=== PATIENT | female | born 1945 | race Caucasian/White ===

== ENCOUNTER 2017-11-13 18:26 | Emergency (ER) | payer MEDICARE, BC ==
--- NOTE | 2017-11-13 19:08 | EDM.PDOC ---
ED HPI GENERAL MEDICAL PROBLEM - General Chief Complaint: General Stated Complaint: confusion, delerium, hallucinations Time Seen by Provider: 11/13/17 18:30 Source of Information: Reports: Family, Other (care center staff) History Limitations: Reports: Altered Mental Status, Combative/Threatening - History of Present Illness INITIAL COMMENTS - FREE TEXT/NARRATIVE: Pt is a 72 year old female who is resident of [facility]. Apparently patient has been having behavior issues going on for the past 1 wk now. Pt is evaluated today, as patient has not slept since 3 am today and has been constantly wandering around in the room. She does try to take of her clothes. She has been having delusional taught of her being . Also she gets extremely confused. Not able to recognize her family members. She has been hearing voices. Also according to daughter who have been with hear today , patient has been hitting and also tried to bite her. She has been eating cheese and crackers all day and drinking apple juice on and off.Has been using bath room regularly to urinate, but does not seem to be anything more than usual according to daughter. Pt's remeron, seroquel and Doxepin have been stopped for past few days. - Related Data Allergies Allergy/AdvReac Type Severity Reaction Status Date / Time morphine Allergy Cannot Verified 11/13/17 19:06 Remember Statins Allergy Cannot Uncoded 11/13/17 19:06 Remember Home Meds: Home Meds Acetaminophen [Tylenol Extra Strength] 1,000 mg PO BID 11/13/17 [History] Cyanocobalamin (Vitamin B-12) [Cyanocobalamin Injection] 1,000 mcg IM ASDIRECTED 11/13/17 [History] Ergocalciferol (Vitamin D2) [Vitamin D2] 50,000 unit PO WEEKLY 11/13/17 [History ] Insulin Detemir [Levemir Flextouch] 28 unit SQ QAM 11/13/17 [History] Loperamide [Imodium] 2 mg PO ASDIRECTED 11/13/17 [History] Menthol [Biofreeze] 1 applic TP DAILY PRN 11/13/17 [History] Metoprolol Succinate [Toprol XL 50mg] 50 mg PO DAILY 11/13/17 [History] Nitroglycerin [Nitrostat] 0.4 mg SL ASDIRECTED 11/13/17 [History] metFORMIN HCl [Metformin HCl] 500 mg PO BIDMEALS 11/13/17 [History] traMADol [Ultram] 50 mg PO TID PRN 11/13/17 [History] ED ROS GENERAL - Review of Systems Review Of Systems: Unable To Obtain (Due to patient being aggitated nad psychotic.) ED EXAM, GENERAL - Physical Exam Exam: See Below Exam Limited By: Combative/Threatening General Appearance: Alert, WD/WN, No Apparent Distress Eye Exam: Bilateral Eye: EOMI, PERRL Ears: Normal External Exam, Normal Canal, Hearing Grossly Normal, Normal TMs Ear Exam: Bilateral Ear: Auricle Normal, Canal Normal, TM normal Nose: Normal Inspection, Normal Mucosa, No Blood Throat/Mouth: Normal Inspection, Normal Lips, Normal Teeth, Normal Gums, Normal Oropharynx, Normal Voice, No Airway Compromise Head: Atraumatic, Normocephalic Neck: Normal Inspection, Supple, Non-Tender, Full Range of Motion Respiratory/Chest: No Respiratory Distress, Lungs Clear, Normal Breath Sounds, No Accessory Muscle Use, Chest Non-Tender Cardiovascular: Normal Peripheral Pulses, Regular Rate, Rhythm, No Edema, No Gallop, No JVD, No Murmur, No Rub GI/Abdominal: Normal Bowel Sounds, Soft, Non-Tender, No Organomegaly, No Distention, No Abnormal Bruit, No Mass Extremities: Normal Inspection, Normal Range of Motion, Non-Tender, Normal Capillary Refill, No Pedal Edema Neurological: Alert, Normal Gait, Confused, Disoriented. No: Oriented, Normal Cognition Psychiatric: Other (Pt has delusions, hallucination both visual and auditory. She is constantly wandering around in the room and trying to continuous pickling line pickler helper thing and pull the closet and drawers around. HArd to calm her down. Does not recognise the family memeber well. Has flight of taughts.) Course - Vital Signs Text/Narrative:: Pt appears very psychotic and she is delusional, agitated and combative at times. I did get her lab work done. Her CBC , CMP are normal. Her TSh is normal. Her UA shows positive nitrite with more than 100 WBC on micro. Pt has UTI. I have discussed patient with . His opinion is the cause of her acute psychosis seems to be from UTI with dementia, which does cause behavioral changes. He has advised to start her on antibiotics and avoid any antipsychotics medication until UTI resolve. I have discussed 's recommendation with patient's daughter, and have started her on Levaquin 500mg daily for 1 wk. Also urine culture has been set up and will followup with culture results. Last Recorded V/S: Last Vital Signs Temp 96.5 F 11/13/17 18:55 Pulse 101 H 11/13/17 18:55 Resp 20 11/13/17 18:55 BP 143/111 H 11/13/17 18:55 Pulse Ox 95 11/13/17 18:55 - Orders/Labs/Meds Orders: Active Orders 24 hr Category Date Time Status CULTURE URINE [RM] Stat Lab 11/13/17 19:55 Received Labs: Laboratory Tests 11/13/17 11/13/17 11/13/17 Range/Units 18:35 18:55 18:55 WBC 10.5 (4.0-11.0) K/uL RBC 3.99 (3.80-5.80) M/uL Hgb 12.9 (11.5-16.5) g/dL Hct 37.2 (37.0-47.0) % MCV 93 (76-96) fL MCH 32.3 H (27.0-32.0) pg MCHC 34.7 (31.0-35.0) g/dL RDW 12.3 (11.0-16.0) % Plt Count 91 L (150-500) K/uL MPV 10.4 H (6.0-10.0) fL Neut % (Auto) 74.1 H (45.0-70.0) % Lymph % (Auto) 13.2 L (20.0-40.0) % [place] % (Auto) 11.4 H (3.0-10.0) % Eos % (Auto) 1.1 (1.0-5.0) % Baso % (Auto) 0.2 (0.0-0.5) % Neut # (Auto) 7.76 H (2.00-7.50) K/uL Lymph # (Auto) 1.38 L (1.50-4.00) K/uL [place] # (Auto) 1.19 H (0.20-0.80) K/uL Eos # (Auto) 0.12 (0.04-0.40) K/uL Baso # (Auto) 0.02 (0.02-0.10) K/uL Sodium 139 (136-145) mmol/L Potassium 4.4 (3.5-5.1) mmol/L Chloride 101 (98-107) mmol/L Carbon Dioxide 27.2 (21.0-32.0) mmol/L Anion Gap 15.2 H (5.0-15.0) mmol/L BUN 16 (8-26) mg/dL Creatinine 0.85 (0.55-1.02) mg/dL Est Cr Clr Drug Dosing TNP Estimated GFR (MDRD) > 60 (>60) MLS/MIN BUN/Creatinine Ratio 18.8 (6-25) Glucose 268 H (74-100) mg/dL Calcium 9.4 (8.5-10.1) mg/dL Total Bilirubin 0.7 (0.0-1.0) mg/dL AST 90 H (15-37) U/L ALT 63 (12-78) U/L Alkaline Phosphatase 71 (46-116) U/L Total Protein 7.4 (6.4-8.2) g/dL Albumin 4.0 (3.4-5.0) g/dL Globulin 3.4 (2.2-4.2) g/dL Albumin/Globulin Ratio 1.2 (0.8-2.0) TSH, Ultra Sensitive (0.358-3.740) uIU/mL Urine Color Yellow Urine Appearance Slightly cloudy (CLEAR) Urine pH 5.0 (5.0-8.0) Ur Specific [place] >= 1.030 (1.003-1.030) Urine Protein Trace H (NEGATIVE) mg/dL Urine Glucose (UA) 100 H (NEGATIVE) mg/dL Urine Ketones Negative (NEGATIVE) mg/dL Urine Occult Blood Moderate H (NEGATIVE) Urine Nitrite Positive H (NEGATIVE) Urine Bilirubin Negative (NEGATIVE) Urine Urobilinogen 0.2 (0.2-1.0) E.U./dL Ur Leukocyte Esterase Small H (NEGATIVE) Urine RBC 10-20 H /HPF Urine WBC >100 H /HPF Urine WBC Clumps Rare /HPF Ur Squamous Epith Cells Few /HPF Urine Bacteria Moderate H /HPF 11/13/17 Range/Units 18:55 WBC (4.0-11.0) K/uL RBC (3.80-5.80) M/uL Hgb (11.5-16.5) g/dL Hct (37.0-47.0) % MCV (76-96) fL MCH (27.0-32.0) pg MCHC (31.0-35.0) g/dL RDW (11.0-16.0) % Plt Count (150-500) K/uL MPV (6.0-10.0) fL Neut % (Auto) (45.0-70.0) % Lymph % (Auto) (20.0-40.0) % [place] % (Auto) (3.0-10.0) % Eos % (Auto) (1.0-5.0) % Baso % (Auto) (0.0-0.5) % Neut # (Auto) (2.00-7.50) K/uL Lymph # (Auto) (1.50-4.00) K/uL [place] # (Auto) (0.20-0.80) K/uL Eos # (Auto) (0.04-0.40) K/uL Baso # (Auto) (0.02-0.10) K/uL Sodium (136-145) mmol/L Potassium (3.5-5.1) mmol/L Chloride (98-107) mmol/L Carbon Dioxide (21.0-32.0) mmol/L Anion Gap (5.0-15.0) mmol/L BUN (8-26) mg/dL Creatinine (0.55-1.02) mg/dL Est Cr Clr Drug Dosing Estimated GFR (MDRD) (>60) MLS/MIN BUN/Creatinine Ratio (6-25) Glucose (74-100) mg/dL Calcium (8.5-10.1) mg/dL Total Bilirubin (0.0-1.0) mg/dL AST (15-37) U/L ALT (12-78) U/L Alkaline Phosphatase (46-116) U/L Total Protein (6.4-8.2) g/dL Albumin (3.4-5.0) g/dL Globulin (2.2-4.2) g/dL Albumin/Globulin Ratio (0.8-2.0) TSH, Ultra Sensitive 1.358 (0.358-3.740) uIU/mL Urine Color Urine Appearance (CLEAR) Urine pH (5.0-8.0) Ur Specific [place] (1.003-1.030) Urine Protein (NEGATIVE) mg/dL Urine Glucose (UA) (NEGATIVE) mg/dL Urine Ketones (NEGATIVE) mg/dL Urine Occult Blood (NEGATIVE) Urine Nitrite (NEGATIVE) Urine Bilirubin (NEGATIVE) Urine Urobilinogen (0.2-1.0) E.U./dL Ur Leukocyte Esterase (NEGATIVE) Urine RBC /HPF Urine WBC /HPF Urine WBC Clumps /HPF Ur Squamous Epith Cells /HPF Urine Bacteria /HPF Meds: Medications Discontinued Medications Generic Name Dose Route Start Last Admin Trade Name Freq PRN Reason Stop Dose Admin Levofloxacin Confirm 11/13/17 20:04 Levaquin Administered 11/13/17 20:05 Dose 1,500 mg .ROUTE .STK-MED ONE Departure - Departure Time of Disposition: 20:20 Disposition: DC/Tfer to Intermediate Care [facility] Condition: Fair Clinical Impression: Acute psychosis, UTI (urinary tract infection) - Discharge Information Forms: ED Department Discharge - Problem List & Annotations (1) Acute psychosis SNOMED Code(s): 86315988, 81384567 Code(s): F23 - BRIEF PSYCHOTIC DISORDER Status: Acute Current Visit: Yes (2) UTI (urinary tract infection) SNOMED Code(s): 42964496 Code(s): N39.0 - URINARY TRACT INFECTION, SITE NOT SPECIFIED Status: Acute Current Visit: Yes - Problem List Review Problem List Initiated/Reviewed/Updated: Yes - My Orders Last 24 Hours: My Active Orders 11/13/17 19:55 CULTURE URINE [RM] Stat - Assessment/Plan Last 24 Hours: My Active Orders 11/13/17 19:55 CULTURE URINE [RM] Stat Assessment:: UTI with acute psychosis Plan: Pt appears very psychotic and she is delusional, agitated and combative at times. I did get her lab work done. Her CBC , CMP are normal. Her TSh is normal. Her UA shows positive nitrite with more than 100 WBC on micro. Pt has UTI. I have discussed patient with . His opinion is the cause of her acute psychosis seems to be from UTI with dementia, which does cause behavioral changes. He has advised to start her on antibiotics and avoid any antipsychotics medication until UTI resolve. I have discussed 's recommendation with patient's daughter, and have started her on Levaquin 500mg daily for 1 wk. Also urine culture has been set up and will followup with culture results.
[2017-11-13] MEDS ORDERED: Levofloxacin 500 MG Tab ONE ×2 (20:04→20:20)
== END 2017-11-13 20:31 ==
LOC: MERGE 18:26 → LB.ED 18:26
DX: N39.0 Urinary tract infection, site not specified (principal); F23 Brief psychotic disorder; Z88.5 Allergy status to narcotic agent; Z88.8 Allergy status to other drugs, medicaments and biological substances; Z79.899 Other long term (current) drug therapy; Z79.4 Long term (current) use of insulin
CPT/HCPCS: 36415; 80053; 81001; 84443; 85025; 87086; 87088; 87186; 99283; 99285; A9270-GY

== ENCOUNTER 2017-11-16 09:37 | Inpatient (IN) | payer MEDICARE, BC ==
[2017-11-16] MEDS ORDERED: Sodium Chloride 0.9% 10 ML Syringe FLUSH PRN (09:59)
[2017-11-16] MEDS ORDERED: Sodium Chloride 0.9% 1,000 ML IV SCH (10:00)
[2017-11-16] MEDS: LORazepam 2 MG/ML SDV IVPUSH PRN ×3 (11:25→22:52)
[2017-11-16] MEDS: Morphine Oral Concentrate 20 MG/ML 30 ML Bottle SL PRN ×2 (15:54→21:57)
--- NOTE | 2017-11-16 16:29 | PCM.HP ---
H&P History of Present Illness - General Date of Service: 11/16/17 Admit Problem/Dx: Admission Diagnosis/Problem Admission Diagnosis/Problem Pain management Source of Information: Family, Other (Care center staff) History Limitations: Reports: Altered Mental Status - History of Present Illness Initial Comments - Free Text/Narative: Pt is a 72 year old female who is presently resident at [facility]. Pt is on comfort care as of yesterday , as she has not been feeding and has been withdrawn and agitated. Family and daughter, Bruna Garcia who is the power of banking attorney for patient hs made this decision. Apparently patient is not taking her comfort medications an d has been agitated all night. Has not slept all night even with Ativan IM injection. hence she has been admitted to acute care of Iv medications to keep he comfort. Also she has had chronic back pain, which might be aggravated and causing some of her discomfort, we could monitor her better and get good pain control is the other reason for acute care hospitalization. - Related Data Allergies/Adverse Reactions: Allergies Allergy/AdvReac Type Severity Reaction Status Date / Time morphine Allergy Cannot Verified 11/13/17 19:06 Remember Statins Allergy Cannot Uncoded 11/13/17 19:06 Remember Home Medications: Home Meds Acetaminophen [Tylenol Extra Strength] 1,000 mg PO BID 11/13/17 [History] Cyanocobalamin (Vitamin B-12) [Cyanocobalamin Injection] 1,000 mcg IM ASDIRECTED 11/13/17 [History] Ergocalciferol (Vitamin D2) [Vitamin D2] 50,000 unit PO WEEKLY 11/13/17 [History ] Insulin Detemir [Levemir Flextouch] 28 unit SQ QAM 11/13/17 [History] Loperamide [Imodium] 2 mg PO ASDIRECTED 11/13/17 [History] Menthol [Biofreeze] 1 applic TP DAILY PRN 11/13/17 [History] Metoprolol Succinate [Toprol XL 50mg] 50 mg PO DAILY 11/13/17 [History] Nitroglycerin [Nitrostat] 0.4 mg SL ASDIRECTED 11/13/17 [History] metFORMIN HCl [Metformin HCl] 500 mg PO BIDMEALS 11/13/17 [History] traMADol [Ultram] 50 mg PO TID PRN 11/13/17 [History] Past Medical History Cardiovascular History: Reports: Bypass, High Cholesterol, Hypertension, Stents Genitourinary History: Reports: UTI, Recurrent Psychiatric History: Reports: Anxiety, Dementia, Depression Endocrine/Metabolic History: Reports: Diabetes, Type II Dermatologic History: Reports: Other (See Below) Other Dermatologic History: dementia picking - Healed Scabs - random across body - Past Surgical History Cardiovascular Surgical History: Reports: Coronary Artery Bypass, Coronary Artery Stent Musculoskeletal Surgical History: Reports: Knee Replacement, Other (See Below) Other Musculoskeletal Surgeries/Procedures:: back Surgery Social & Family History - Family History Family Medical History: Noncontributory - Tobacco Use Smoking Status *Q: Never Smoker Second Hand Smoke Exposure: No - Caffeine Use Caffeine Use: Reports: Coffee - Recreational Drug Use Recreational Drug Use: No H&P Review of Systems - Review of Systems: Review Of Systems: Unable To Obtain (due to patient condition) Exam - Exam Exam: See Below - Vital Signs Vital Signs: Last Vital Signs Temp 98.5 F 11/16/17 11:00 Pulse 88 11/16/17 11:00 Resp 12 11/16/17 11:00 BP 154/58 H 11/16/17 11:00 Pulse Ox 94 L 11/16/17 11:00 Weight: 65.487 kg - Exam General: Obtunded HEENT: PERRLA Neck: Supple, Trachea Midline Lungs: Clear to Auscultation, Normal Respiratory Effort Cardiovascular: Regular Rate, Regular Rhythm GI/Abdominal Exam: Normal Bowel Sounds, Soft, Non-Tender, No Organomegaly, No Distention, No Abnormal Bruit, No Mass, Pelvis Stable Extremities: Normal Inspection, Normal Range of Motion, Non-Tender, No Pedal Edema, Normal Capillary Refill Peripheral Pulses: 2+: Brachial (L), Brachial (R), Radial (L), Radial (R) Skin: Warm, Intact Neurological: Other (responds to pain and sometime aggitated possible form her back pain) - Problem List (1) Pain management SNOMED Code(s): 852955543 ICD Code: R52 - PAIN, UNSPECIFIED Status: Acute Current Visit: Yes (2) Need for comfort care SNOMED Code(s): 328300529 ICD Code: [id number] - Status: Acute Current Visit: Yes Problem List Initiated/Reviewed/Updated: Yes Orders Last 24hrs: Assesment: aggitation and pain managemntActive Orders 24 hr Category Date Time Status Patient Status [ADT] Routine ADT 11/16/17 09:59 Active VTE/DVT Education [RC] Per Unit Routine Care 11/16/17 09:59 Active Vital Signs [RC] PER UNIT ROUTINE Care 11/16/17 09:59 Active Clear Liquid Diet [DIET] Diet 11/16/17 Lunch Ordered LORazepam [Ativan] Med 11/16/17 10:05 Active 1 mg IVPUSH Q4H PRN Morphine [Morphine 20 MG/ML Soln] Med 11/16/17 10:06 Active 2 mg SL Q6H PRN Sodium Chloride 0.9% [Normal Saline] 1,000 ml Med 11/16/17 10:00 Active IV ASDIRECTED Sodium Chloride 0.9% [Saline Flush] Med 11/16/17 09:59 Active 10 ml FLUSH ASDIRECTED PRN Peripheral IV Insertion Adult [OM.PC] Routine Oth 11/16/17 09:59 Ordered Resuscitation Status Routine Resus Stat 11/16/17 09:59 Ordered Medication Orders Sodium Chloride (Normal Saline) 1,000 mls @ 0 mls/hr IV ASDIRECTED PIERRE Last Admin: 11/16/17 11:26 Dose: 30 mls/hr Lorazepam (Ativan) 1 mg IVPUSH Q4H PRN PRN Reason: Agitation Last Admin: 11/16/17 11:25 Dose: 1 mg Morphine Sulfate (Morphine 20 Mg/Ml Soln) 2 mg SL Q6H PRN PRN Reason: Agitation Last Admin: 11/16/17 15:54 Dose: 2 mg Sodium Chloride (Saline Flush) 10 ml FLUSH ASDIRECTED PRN PRN Reason: Keep Vein Open Assessment/Plan Comment:: Assessment: pain management and comfort care As patient has not been taking oral meds and she is very agitated, plan is to admit patient o acute care for IV medication. According to daughter Bruna Rootdian the power of banking attorney of medical decision making, she does not want IV hydration. Hence IV fluid is at #0cc/hr to keep the IV line patent. Will start on Iv ativan 1mg every 4 hrs for agitation. also will try S/L MSO4 at 1mg every 4 hrs. Will try to manage her pain and keep her comfortable and well rested. Family does understand and agree with the plan.
[2017-11-17] MEDS ORDERED: LORazepam 2 MG/ML SDV IVPUSH ONE (00:20)
[2017-11-17] MEDS: LORazepam 2 MG/ML SDV IVPUSH PRN ×9 (04:17→22:30)
[2017-11-17] MEDS: Morphine Oral Concentrate 20 MG/ML 30 ML Bottle SL PRN ×7 (06:02→22:00)
--- NOTE | 2017-11-17 08:37 | PCM.PN ---
- General Info Date of Service: 11/17/17 Subjective Update: Pt is on IV morphine and ativan. Apparently last night patient did have some episodes of agitation and SOB. She almost slept most f the night, with short episodes of agitation. Does not recognize or open her eyes any more. Pt is not eating or drinking for past 2 days now.No fever or chills. Family is happy with the care, but would prefer her to have less of agitation episodes. - Review of Systems General: Reports: Other (Cannot obtain due to patient condition.) - Patient Data Vitals - Most Recent: Last Vital Signs Temp 98.4 F 11/16/17 19:15 Pulse 88 11/16/17 19:15 Resp 14 11/16/17 19:15 BP 149/66 H 11/16/17 19:15 Pulse Ox 94 L 11/16/17 19:15 Weight - Most Recent: 65.487 kg Med Orders - Current: Current Medications Sodium Chloride (Normal Saline) 1,000 mls @ 0 mls/hr IV ASDIRECTED PIERRE Last Admin: 11/16/17 11:26 Dose: 30 mls/hr Lorazepam (Ativan) 1 mg IVPUSH Q2H PRN PRN Reason: Agitation Morphine Sulfate (Morphine 20 Mg/Ml Soln) 2 mg SL Q4H PRN PRN Reason: Agitation Sodium Chloride (Saline Flush) 10 ml FLUSH ASDIRECTED PRN PRN Reason: Keep Vein Open Discontinued Medications Lorazepam (Ativan) 1 mg IVPUSH Q4H PRN PRN Reason: Agitation Last Admin: 11/17/17 06:13 Dose: 1 mg Lorazepam (Ativan) 2 mg IVPUSH ONETIME ONE Stop: 11/17/17 00:21 Last Admin: 11/17/17 00:30 Dose: 2 mg Morphine Sulfate (Morphine 20 Mg/Ml Soln) 2 mg SL Q6H PRN PRN Reason: Agitation Last Admin: 11/17/17 06:02 Dose: 2 mg - Exam General: Obtunded, Other (Pt does have chynne stokke breathing patern) HEENT: Pupils Equal, Pupils Reactive Neck: Supple Lungs: Clear to Auscultation, Normal Respiratory Effort Cardiovascular: Regular Rate, Regular Rhythm GI/Abdominal Exam: Normal Bowel Sounds, Soft, Non-Tender, No Organomegaly, No Distention, No Abnormal Bruit, No Mass, Pelvis Stable Extremities: Normal Inspection, Normal Range of Motion, Non-Tender, No Pedal Edema, Normal Capillary Refill Peripheral Pulses: 2+: Radial (L), Radial (R), Dorsalis Pedis (L), Dorsalis Pedis (R) Skin: Warm, Intact - Problem List & Annotations (1) Pain management SNOMED Code(s): 449749837 Code(s): R52 - PAIN, UNSPECIFIED Status: Acute Current Visit: Yes (2) Need for comfort care SNOMED Code(s): 261911844 Code(s): JXT1426 - Status: Acute Current Visit: Yes - Problem List Review Problem List Initiated/Reviewed/Updated: Yes - My Orders Last 24 Hours: My Active Orders 11/16/17 09:59 Patient Status [ADT] Routine VTE/DVT Education [RC] .PRN Vital Signs [RC] PER UNIT ROUTINE Sodium Chloride 0.9% [Saline Flush] 10 ml FLUSH ASDIRECTED PRN Peripheral IV Insertion Adult [OM.PC] Routine Resuscitation Status Routine 11/16/17 10:00 Sodium Chloride 0.9% [Normal Saline] 1,000 ml IV ASDIRECTED 11/16/17 Lunch Clear Liquid Diet [DIET] 11/17/17 08:21 LORazepam [Ativan] 1 mg IVPUSH Q2H PRN 11/17/17 08:24 Morphine [Morphine 20 MG/ML Soln] 2 mg SL Q4H PRN - Plan Plan:: Assessment: pain management and comfort care As patient has not been taking oral meds and she is very agitated, plan is to admit patient o acute care for IV medication. According to daughter Bruna Garcia the power of tax attorney of medical decision making, she does not want IV hydration. Hence IV fluid is at #0cc/hr to keep the IV line patent. Will start on Iv ativan 1mg every 4 hrs for agitation. also will try S/L MSO4 at 1mg every 4 hrs. Will try to manage her pain and keep her comfortable and well rested. Family does understand and agree with the plan. 11/17/17 Pt has had few episodes of agitation. She is not alert or oriented. Most of the day sleeping. Due to her excessive agitation, I have increased her ativan to 1mg every 2 hrs and also MSO4 to 2mg every 4 hrs now. Will continue to monitor patient. Family is very involved with all decision making.
[2017-11-17] MEDS ORDERED: Menthol/Zinc Oxide Ointment 113 GM Tube TOP PRN (08:40)
[2017-11-17] MEDS ORDERED: Menthol/Zinc Oxide Ointment 113 GM Tube TOP ONE (08:45)
[2017-11-18] MEDS: Morphine Oral Concentrate 20 MG/ML 30 ML Bottle SL PRN ×8 (07:41→23:08)
--- NOTE | 2017-11-18 08:30 | PCM.PN ---
- General Info Date of Service: 11/18/17 Subjective Update: Pt is responding topain response only. She did have episodes of agitation and grimacing yesterday and her MSO4 was increased to 3mg every 2 hrs. Since last night patient has been more relaxed and does not appear to be in any distress. No concerns from the family. Functional Status: Reports: Pain Controlled - Review of Systems General: Reports: Other (unable to obtain due to patient condition) - Patient Data Vitals - Most Recent: Last Vital Signs Temp 98.4 F 11/16/17 19:15 Pulse 88 11/16/17 19:15 Resp 14 11/16/17 19:15 BP 149/66 H 11/16/17 19:15 Pulse Ox 94 L 11/16/17 19:15 Weight - Most Recent: 65.487 kg Med Orders - Current: Current Medications Calamine/Phenol (Calmoseptine) 0 gm TOP QID PRN PRN Reason: Skin Breakdown Sodium Chloride (Normal Saline) 1,000 mls @ 0 mls/hr IV ASDIRECTED PIERRE Last Admin: 11/16/17 11:26 Dose: 30 mls/hr Lorazepam (Ativan) 1 mg IVPUSH Q2H PRN PRN Reason: Agitation Last Admin: 11/17/17 22:30 Dose: 1 mg Morphine Sulfate (Morphine 20 Mg/Ml Soln) 3 mg SL Q2H PRN PRN Reason: pain Last Admin: 11/18/17 07:41 Dose: 3 mg Sodium Chloride (Saline Flush) 10 ml FLUSH ASDIRECTED PRN PRN Reason: Keep Vein Open Discontinued Medications Calamine/Phenol (Calmoseptine) Confirm Administered Dose 113 gm TOP .STK-MED ONE Stop: 11/17/17 08:46 Last Admin: 11/17/17 09:48 Dose: Not Given Lorazepam (Ativan) 1 mg IVPUSH Q4H PRN PRN Reason: Agitation Last Admin: 11/17/17 06:13 Dose: 1 mg Lorazepam (Ativan) 2 mg IVPUSH ONETIME ONE Stop: 11/17/17 00:21 Last Admin: 11/17/17 00:30 Dose: 2 mg Morphine Sulfate (Morphine 20 Mg/Ml Soln) 2 mg SL Q6H PRN PRN Reason: Agitation Last Admin: 11/17/17 06:02 Dose: 2 mg Morphine Sulfate (Morphine 20 Mg/Ml Soln) 2 mg SL Q4H PRN PRN Reason: Agitation Last Admin: 11/17/17 14:01 Dose: 2 mg Morphine Sulfate (Morphine 20 Mg/Ml Soln) 2 mg SL Q2H PRN PRN Reason: pain Last Admin: 11/17/17 20:05 Dose: 2 mg - Exam General: Obtunded HEENT: Pupils Equal, Pupils Reactive, Mucous Membr. Moist/[place] Neck: Supple Lungs: Clear to Auscultation, Other (uses accessary muscles of respirtion of the neck) Cardiovascular: Regular Rate, Regular Rhythm GI/Abdominal Exam: Normal Bowel Sounds, Soft, Non-Tender, No Organomegaly Peripheral Pulses: 2+: Radial (L), Radial (R) Skin: Warm, Intact Neurological: Other (only responds to pain stimulus) - Problem List & Annotations (1) Pain management SNOMED Code(s): 800399316 Code(s): R52 - PAIN, UNSPECIFIED Status: Acute Current Visit: Yes (2) Need for comfort care SNOMED Code(s): 675986870 Code(s): QBY9563 - Status: Acute Current Visit: Yes - Problem List Review Problem List Initiated/Reviewed/Updated: Yes - My Orders Last 24 Hours: My Active Orders 11/17/17 08:21 LORazepam [Ativan] 1 mg IVPUSH Q2H PRN 11/17/17 08:40 Menthol/Zinc Oxide [Calmoseptine] 0 gm TOP QID PRN 11/17/17 21:51 Morphine [Morphine 20 MG/ML Soln] 3 mg SL Q2H PRN - Plan Plan:: Assessment: pain management and comfort care As patient has not been taking oral meds and she is very agitated, plan is to admit patient o acute care for IV medication. According to daughter Bruna Garcia the power of banking attorney of medical decision making, she does not want IV hydration. Hence IV fluid is at #0cc/hr to keep the IV line patent. Will start on Iv ativan 1mg every 4 hrs for agitation. also will try S/L MSO4 at 1mg every 4 hrs. Will try to manage her pain and keep her comfortable and well rested. Family does understand and agree with the plan. 11/17/17 Pt has had few episodes of agitation. She is not alert or oriented. Most of the day sleeping. Due to her excessive agitation, I have increased her ativan to 1mg every 2 hrs and also MSO4 to 2mg every 4 hrs now. Will continue to monitor patient. Family is very involved with all decision making. 11/18/17 Pt appears more calm and relaxed. Her Ativan is 1mg every 2 hrs and her present MSO4 dose is 3mg every 2 hrs. Pt appears very comfortable. Will continue present management. Family is in agreement.
[2017-11-18] MEDS: LORazepam 2 MG/ML SDV IVPUSH PRN ×4 (12:42→22:04)
[2017-11-18] MEDS ORDERED: Atropine 1% Ophth Soln 5 ML Bottle PRN (20:01)
[2017-11-19] MEDS: LORazepam 2 MG/ML SDV IVPUSH PRN ×3 (01:15→07:07)
[2017-11-19] MEDS: Morphine Oral Concentrate 20 MG/ML 30 ML Bottle SL PRN (03:03)
--- NOTE | 2017-11-19 10:36 | PCM.DCSUM1 ---
Discharge Summary - Hospital Course Free Text/Narrative:: Pt was care center resident who has been on comfort care. She was admitted to hospital for IV medications management as pt's agitation and restlessness was not controlled by oral medication. Pt was started on IV ativan 1mg every 4 hrs and also on MSO4 2mg every 4 hrs. Due to patient agitation and grimacing with pain. The doses have gradually been increased to MSO4 3mg every 2 hrs now and ativan 2mg every 2 hrs now. Pt has been sedated,, and less agitated at present dose. Family is very involved with the care of patient all through. At this point as there is not much acute care that is going on and patient has been comfortable, plan is to swing pt to swing bed level of care and start her on Morphine REHAB SPECIALIST. family in agreement with plan. Brief History: Pt admittted from care center to Acute care for comfort care with IV medication management. Kindly see H&P for details. - Discharge Data Discharge Date: 11/19/17 Discharge Disposition: DC/Tfer W/I Hosp To Swing Condition: Poor - Discharge Diagnosis/Problem(s) (1) Pain management SNOMED Code(s): 597494202 ICD Code: R52 - PAIN, UNSPECIFIED Status: Acute Current Visit: Yes (2) Need for comfort care SNOMED Code(s): 163475420 ICD Code: [id number] - Status: Acute Current Visit: Yes - Patient Instructions Diet: NPO - Discharge Plan - Discharge Summary/Plan Comment DC Time >30 min.: Yes Discharge Summary/Plan Comment: Kindly use this as Swing bed Admission note. - General Info Date of Service: 11/19/17 Functional Status: Reports: Other (unresponsive and sedated) - Review of Systems General: Reports: Other (unobtainable to to patient condition) - Patient Data Vitals - Most Recent: Last Vital Signs Temp 99.3 F 11/19/17 04:10 Pulse 128 H 11/19/17 04:10 Resp 28 H 11/19/17 04:10 BP 150/98 H 11/19/17 04:10 Pulse Ox 89 L 11/19/17 04:10 Weight - Most Recent: 65.487 kg Med Orders - Current: Current Medications Atropine Sulfate (Isopto Atropine 1% Oph Soln) 0 ml .XX ASDIRECTED PRN PRN Reason: secretions Last Admin: 11/18/17 20:15 Dose: 2 drop Calamine/Phenol (Calmoseptine) 0 gm TOP QID PRN PRN Reason: Skin Breakdown Sodium Chloride (Normal Saline) 1,000 mls @ 0 mls/hr IV ASDIRECTED PIERRE Last Infusion: 11/18/17 12:54 Dose: 30 mls/hr Lorazepam (Ativan) 1 mg IVPUSH Q2H PRN PRN Reason: Agitation Last Admin: 11/19/17 07:07 Dose: 1 mg Morphine Sulfate (Morphine 20 Mg/Ml Soln) 3 mg SL Q2H PRN PRN Reason: pain Last Admin: 11/19/17 03:03 Dose: 3 mg Sodium Chloride (Saline Flush) 10 ml FLUSH ASDIRECTED PRN PRN Reason: Keep Vein Open Last Admin: 11/18/17 12:42 Dose: 10 ml Discontinued Medications Calamine/Phenol (Calmoseptine) Confirm Administered Dose 113 gm TOP .STK-MED ONE Stop: 11/17/17 08:46 Last Admin: 11/17/17 09:48 Dose: Not Given Lorazepam (Ativan) 1 mg IVPUSH Q4H PRN PRN Reason: Agitation Last Admin: 11/17/17 06:13 Dose: 1 mg Lorazepam (Ativan) 2 mg IVPUSH ONETIME ONE Stop: 11/17/17 00:21 Last Admin: 11/17/17 00:30 Dose: 2 mg Morphine Sulfate (Morphine 20 Mg/Ml Soln) 2 mg SL Q6H PRN PRN Reason: Agitation Last Admin: 11/17/17 06:02 Dose: 2 mg Morphine Sulfate (Morphine 20 Mg/Ml Soln) 2 mg SL Q4H PRN PRN Reason: Agitation Last Admin: 11/17/17 14:01 Dose: 2 mg Morphine Sulfate (Morphine 20 Mg/Ml Soln) 2 mg SL Q2H PRN PRN Reason: pain Last Admin: 11/17/17 20:05 Dose: 2 mg - Exam General: Reports: Sedated, Obtunded HEENT: Reports: Pupils Equal, Pupils Reactive Neck: Reports: Supple Lungs: Reports: Clear to Auscultation, Normal Respiratory Effort Cardiovascular: Reports: Regular Rate, Regular Rhythm GI/Abdominal Exam: Normal Bowel Sounds Extremities: Normal Inspection, Normal Range of Motion, Non-Tender, No Pedal Edema, Normal Capillary Refill Skin: Reports: Warm, Intact
== END 2017-11-19 08:38 | disposition swing bed (61) | DRG 948 ==
LOC: LB.MS 09:37 → UNDOADMIN 09:37 → LB.MS 09:59 → EEVIPCON 09:59
PROVIDERS: ADMIT Family Medicine; ATTEND Family Medicine
DX: R52 Pain, unspecified (principal); Z51.5 Encounter for palliative care; R45.1 Restlessness and agitation; I10 Essential (primary) hypertension; F03.90 Unspecified dementia, unspecified severity, without behavioral disturbance, psychotic disturbance, mood disturbance, and anxiety; M54.9 Dorsalgia, unspecified; G89.29 Other chronic pain; Z95.1 Presence of aortocoronary bypass graft; Z95.5 Presence of coronary angioplasty implant and graft; Z87.440 Personal history of urinary (tract) infections; Z96.659 Presence of unspecified artificial knee joint; Z88.5 Allergy status to narcotic agent
CPT/HCPCS: A9270-GY; J2060; J7030; J7050

== ENCOUNTER 2017-11-19 08:00 | Inpatient (IN) | payer MEDICARE, BC ==
[2017-11-19] MEDS ORDERED: Morphine PF 150 MG/30 ML PCA Syringe IV STA (08:40)
[2017-11-19] MEDS ORDERED: Morphine PF 150 MG/30 ML PCA Syringe ONE (08:50)
[2017-11-19] MEDS ORDERED: LORazepam 2 MG/ML SDV IVPUSH SCH (10:00)
[2017-11-19] MEDS ORDERED: Sodium Chloride 0.9% 1,000 ML IV SCH (12:00)
--- NOTE | 2017-11-19 15:14 | PCM.DCSUM1 ---
Discharge Summary - Hospital Course Free Text/Narrative:: Pt was admitted to swing bed today as she has been in comfort care status for past few days. The admission was done today morning.Apparently around 11:56 Am when nurse went to evaluate patient , it was noted that patient was not breathing and on exam there ws no palpable pulse or visual or audible breath sounds. I was called in to evaluate. pt was declared at 11:56 Am on . Brief History: Admitted today to swing [facility] level of care. Kindly see H&P - Discharge Data Discharge Date: 11/19/17 Discharge Disposition: 20 Condition: Good - Discharge Diagnosis/Problem(s) (1) Need for comfort care SNOMED Code(s): 636403208 ICD Code: [id number] - Status: Acute Current Visit: No - Discharge Plan Home Medications: Home Meds NK [No Known Home Meds] 11/19/17 [History] - Discharge Summary/Plan Comment Discharge Summary/Plan Comment: Pt declared at 11:56 am on 11/19/17 - Review of Systems General: Reports: Other (unobtainable) - Patient Data Med Orders - Current: Current Medications Discontinued Medications Lorazepam (Ativan) 2 mg IVPUSH Q2HR PIERRE Last Admin: 11/19/17 11:16 Dose: Not Given Morphine Sulfate (Morphine [employer]neyman Pipe Welder 150 Mg In 30 Ml) 0 mg IV NOW STA; Protocol Stop: 11/19/17 08:41 Last Admin: 11/19/17 09:25 Dose: 1.5 mg Morphine Sulfate (Morphine [employer] Pipe Welder 150 Mg In 30 Ml) Confirm Administered Dose 150 mg .ROUTE .STK-MED ONE Stop: 11/19/17 08:51 Last Admin: 11/19/17 09:08 Dose: Not Given - Exam General: Denies: Alert, Oriented HEENT: Reports: Other (absent pupillary and conreal reflex). Denies: Pupils Equal, Pupils Reactive Lungs: Reports: Other (absent breath sounds). Denies: Clear to Auscultation, Normal Respiratory Effort Cardiovascular: Reports: Other (absent heart rate and sounds)
== END 2017-11-19 11:56 | disposition expired | DRG 948 ==
LOC: LB.MS 08:01 → UNDOADMIN 08:01 → EEVIPCON 08:38 → LB.MS 08:38
PROVIDERS: ADMIT Family Medicine; ATTEND Family Medicine
DX: R52 Pain, unspecified (principal); R45.1 Restlessness and agitation; F03.90 Unspecified dementia, unspecified severity, without behavioral disturbance, psychotic disturbance, mood disturbance, and anxiety; I10 Essential (primary) hypertension
CPT/HCPCS: J2270